=== PATIENT | female | born 2005 | race Caucasian/White ===

== ENCOUNTER 2023-11-14 20:49 | Emergency (ER) | payer OTHER, SELFPAY ==
[2023-11-14 20:55] VITALS: BP 132/70; BMI 24.6
[2023-11-14 21:19] LABS: % Basophils 0.3 % (0-2); % Eosinophils 2.4 % (0-6); % Immature Granulocytes 0.2 % (0-0.5); % Monocytes 6.8 % (1.7-9.3); % Neutrophils 44.3 % (42.2-75.2); Absolute Eosinophils 0.2 10^3/uL (0-0.7); Absolute Lymphocytes 2.9 10^3/uL (1.2-3.4); Absolute Monocytes 0.4 10^3/uL (0.1-0.6); Absolute Neutrophils 2.8 10^3/uL (1.4-6.5); Hematocrit 34.8 % (37.0-47.0); Hemoglobin 12.1 g/dL (12.0-16.0); Mean Corp Hgb Conc. 34.8 g/dL (33.0-37.0); Mean Corpuscular Hgb 30.1 pg (27.0-31.0); Mean Corpuscular Volume 86.6 fL (81.0-99.0); Mean Platelet Volume 9.6 fL (7.4-10.4); Nucleated Red Blood Cells % 0 %; Platelet Count 213 10^3/uL (130-400); Red Blood Cell Count 4.02 10^6/uL (4.20-5.40); Red Cell Dist. Width 12.1 % (11.5-14.5); White Blood Cell Count 6.2 10^3/uL (4.8-10.8)
[2023-11-14 21:50] LABS: Beta HCG Quantitative 80.17 mIU/ml
--- NOTE | 2023-11-14 22:21 | ED.GENMED ---
History of Present Illness
General
Chief Complaint: Vaginal Bleeding
Source: patient
Exam Limitations: none
Time Seen by Provider: 11/14/23 21:56
Travel History
Have you had any contact with someone who has COVID-19?: No
Do you have any symptoms of coronavirus? Fever > 100 degrees, chills, cough, shortness of breath, sore throat, loss of taste or smell, muscle aches, or headache?: No
History of Present Illness
History of Present Illness:
This is a 18 year old female that comes in with c/o heavy vaginal bleeding. States that she has done 3 home test and they came back positive. States that she started with heavy vaginal bleeding today. States that she also has abd cramping
and pain on the right side. States that she is nauseated. Denies any fever, chills, chest pain, SOB, vomiting, diarrhea, headache, dizziness, urinary burning.
Past History
Past History
ED Past Medical History: None
ED Past Surgical History: None
Social History
Tobacco: Non-smoker
Alcohol: None
Personal: Single
Living: with family
Review of Systems
Review of Systems
All Other Systems: ROS reviewed and negative except as documented in HPI and ROS
Constitutional: Reports no symptoms; Denies fever or chills
EENT: Reports no symptoms
Respiratory: Reports no symptoms; Denies cough or trouble breathing
Cardiac: Reports no symptoms; Denies chest pain
ABD/GI: Reports abdominal pain and nausea; Denies vomiting or diarrhea
: Reports no symptoms; Denies dysuria, frequency or urgency
Musculoskeletal: Reports no symptoms
Skin: Reports no symptoms
Neurological: Reports no symptoms; Denies dizzy or headache
Psychiatric: Reports no symptoms
Phy Exam
General Physical Exam
General Presentation: mild distress
General age: appears stated age
General Skin: warm and dry
General Habitus: normal
General Mental: alert
ENT Exam
ENT Exam: TM's normal, pharynx normal and neck supple
Eye Exam
Eye Exam: EOMI
Cardiovascular Exam
Cardiovascular Exam: regular rate/rhythm, no edema, no murmur and normal peripheral pulses
Pulmonary Exam
Pulmonary Exam: lungs clear, no respiratory distress, no rales, chest non tender, no crackles, no rhonchi, no wheezing and no cough
Gastrointestinal Exam
Gastrointestinal Exam: normal bowel sounds, soft, no organomegaly, no pulsatile mass, non distended and tender (Right lower abd tenderness with palpation)
Musculoskeletal Exam
Musculoskeletal Exam: full ROM and no edema
Skin Exam
Skin Exam: normal color, warm/dry, no rash and no petechia
Psychiatric Exam
Psychiatric Exam: normal mood/affect
Course
Orders/Labs/Results
Orders:
Orders
11/14/23 21:11
Type+Screen Urgent
Beta HCG Quantitative Urgent
Is this a screen?: No
Complete Blood Count/With Diff Urgent
11/14/23 22:19
IV Insert/Care/Rem.- Treatment PRN
0.9% Sodium Chloride 1000 ml [Nss] 1,000 ml IV BOLUS
Ketorolac [Toradol] 30 mg IV NOW STA
US W Transvaginal Urgent
Reason For Exam: Heavy vaginal bleeding, cramping, Right sided pain
11/14/23 23:22
Comprehensive Metabolic Panel Urgent
Abnormal Lab Results
11/14/23 11/14/23
21:11 23:22
RBC 4.02 L 10^6/uL
(4.20-5.40)
Hct 34.8 L %
(37.0-47.0)
Glucose 111 H mg/dl
(70-99)
11/14/23 21:11
11/14/23 23:22
Labs unremarkable. HCG 80.17, Glucose nonfasting.
Vital Signs
Initial and Last Documented VS:
Initial Vital Signs
Temp Pulse Resp BP Pulse Ox
98.5 F 86 16 132/70 100
11/14/23 20:55 11/14/23 20:55 11/14/23 20:55 11/14/23 20:55 11/14/23 20:55
Last Documented Vital Signs
Temp Pulse Resp BP Pulse Ox
98.5 F 86 16 120/59 100
11/14/23 20:55 11/14/23 20:55 11/14/23 20:55 11/14/23 23:14 11/14/23 23:30
MDM/Problems Addressed
Differential Diagnosis Includes:
Miscarriage, Tubal ,
MDM/Problems Addressed:
This is a 18 year old female that comes in with c/o abd cramping and heavy vaginal bleeding. States that she did three home test and they were positive. Then she started with today with the bleeding and pain.
Will check labs, Get US and give IV fluids
Back into see patient. Patient states that her pain is better. Explained that there is no intrauterine seen. This is most likely a miscarriage, but a tubal can't be ruled out. There was no abnormal tubal masses noted. Patient
will need to follow up with the [facility] for repeat HCG in the next 24 hours. Patient to return with increased pain.
Chronic conditions affecting care:
NA
Acute Exacerbation and/or Progression of Chronic Illness:
NA
*Radiology
Radiology exam reviewed: radiology read reviewed (US night hawk- No intrauterine . Ectopic cannot be excluded. Endometrium measures 8mm without hypervascularity. Small amount of complex pelvic free fluid. nonenlarged ovaries with
normal vascular flow. 1.5cm right ovarian corpus luteum. No suspicious adnexal mass lesions. )
*Pulse Oximetry
Patient hypoxic: no
*EKG
Interpreted by ED Provider?: NA
Rate: EKG- N/A
*After School Coordinator Interpretation
Rate: After School Coordinator- N/A
*Critical Care Note
Total Time (30-74mins, 75-104mins- exclusive of procedures): Not Applicable
ED Attending Note
-
Portions of this chart may have been created with voice recognition software.� Occasional wrong word or��sound alike� substitutions may have occurred due to the inherent limitations of voice recognition software.
Discharge Plan
Departure
Patient Disposition: Home (Routine Discharge)
Date of Disposition: 11/15/23
Time of Disposition: 00:12
Patient with high blood pressure during this ER visit?: No
Condition: Good
Covid-19: Not Applicable
Discharge Problem:
Miscarriage
Instructions: Miscarriage (DC)
Prescriptions:
No Action
No Current Medications
0
Referrals:
UNKNOWN - PT DOES,NOT KNOW [Family Provider] -
Activity Restrictions/Additional Instructions:
As discussed, your blood work is normal. Your HCG is very low and your ultrasound is negative for any intrauterine . This is most likely a Miscarriage. However, the concern for a tubal is there as you are very early. There are no
tubal masses seen. You will need to have your Blood HCG rechecked in the next 24 hours by our [facility] or [facility]. IF YOU HAVE INCREASED ABD PAIN, DIZZINESS, OR YOU HAVE ANY OTHER CONCERNS PLEASE RETURN TO THE EMERGENCY ROOM
Interventions
Interventions:
*Risk Screen - Suicide Last Done: 11/14/23 20:55
*General Assessment Last Done: 11/14/23 23:33
*Neglect/Abuse Screening Last Done: 11/14/23 20:55
ED- Fall Risk Assessment Last Done: 11/14/23 23:33
*ED COVID-19 Vaccine History Last Done: 11/14/23 20:55
ED-Female Genitourinary Assessment Last Done: 11/14/23 23:33
[2023-11-14 23:14] VITALS: BP 120/59
[2023-11-14] MEDS: TORADOL 30 MG IV (23:20)
[2023-11-14] MEDS: NSS 1000 IV (23:20)
[2023-11-14 23:51] LABS: ALT (SGPT) 12 U/L (0-35); AST (SGOT) 24 U/L (14-36); Albumin 4.9 g/dl (3.5-5.0); Alkaline Phosphatase 55 U/L (38-126); Blood Urea Nitrogen 9 mg/dl (7-17); Calcium 9.4 mg/dl (8.4-10.2); Carbon Dioxide 26 mmol/L (22-30); Chloride 103 mmol/L (98-107); Estimated Creatinine Clearance 113 ml/min; Glucose 111 mg/dl (70-99); Sodium 135 mmol/L (135-145); Total Bilirubin 0.8 mg/dl (0.2-1.3); Total Protein 7.7 g/dl (6.3-8.2); eGFR > 60.00
[2023-11-15] VITALS: BP 103/62
== END 2023-11-15 00:51 | disposition home or self-care (01) ==
LOC: EMR 20:49
PROVIDERS: Clinical Nurse Specialist Family Health; Emergency Medicine; EMERGENCY PHYSICIAN Emergency Medicine
DX: O03.9 Complete or unspecified spontaneous abortion without complication (principal); R11.0 Nausea
CPT/HCPCS: 99284; 96374; 96361; 76801; 76817; 80053; 84702; 85025; 86850; 86900; 86901

== ENCOUNTER 2024-10-06 16:39 | Emergency (ER) | payer SELFPAY ==
[2024-10-06 16:48] VITALS: BP 153/97
--- NOTE | 2024-10-06 16:49 | ED.GENMED ---
ED Provider Triage
<Geoff Chang Jr., PA-C - Last Filed: 10/06/24 16:50>
-
Patient seen by provider in Triage?: Seen in Triage
Attestation: A medical screening examination has been initiated by a qualified medical provider. Based on the assessment performed at this time, it has been determined that an emergent medical condition may exist and the patient has been informed
that further medical evaluation and possible additional diagnostic testing may be needed.
HPI: 19-year-old female presenting to the emergency department today with concerns of ongoing nausea vomiting over the past month or so. 2 days ago had an episode where she had a small cut on her finger for like she can a pass out but did not
fully pass out. Ongoing symptoms since then over the past 2 days as well. Plan for initial labs and EKG.
GENERAL: Alert , in no apparent distress
EYE: No visual abnormalities.
NECK: Trachea midline
ENT: No visible abnormalities.
LUNGS: No acute respiratory distress
NEUROLOGICAL: Alert and oriented
SKIN: Skin intact. No visible changes.
MUSCULOSKELETAL: Moving extremities normally
PSYCH: Normal and appropriate interaction.
This is a medical evaluation conducted in person to initiate diagnostic evaluation and provide initial therapeutics. Please see further documentation by the treating clinician.
History of Present Illness
<Geoff Chang Jr., PA-C - Last Filed: 10/06/24 16:50>
General
Chief Complaint: Abdominal Symptoms
Time Seen by Provider: 10/06/24 17:51
<Srikanth Nation DO - Last Filed: 10/06/24 18:18>
General
Source: patient
Exam Limitations: none
Nursing documentation reviewed up to this point in time: agreed with
History of Present Illness
History of Present Illness:
19-year-old female with anxiety and nausea. Denies SI, HI or abdominal pain. She was anxious about smoking marijuana from someone that has herpes.
Past History
<Geoff Chang Jr., PA-C - Last Filed: 10/06/24 16:50>
Past History
ED Past Medical History: None
ED Past Surgical History: None
Social History
Tobacco: Non-smoker
Alcohol: None
Personal: Single
Living: with family
<Srikanth Nation, DO - Last Filed: 10/06/24 18:18>
Social History
Drug: Marijuana
Review of Systems
<Srikanth Nation, DO - Last Filed: 10/06/24 18:18>
Review of Systems
Allergies reviewed?: Yes
All Other Systems: Not applicable
Constitutional: Reports no symptoms
EENT: Reports no symptoms
Respiratory: Reports no symptoms
Cardiac: Reports no symptoms
ABD/GI: Reports no symptoms
: Reports no symptoms
Musculoskeletal: Reports no symptoms
Skin: Reports no symptoms
Neurological: Reports no symptoms
Endocrine: Reports no symptoms
Hematologic/Lymphatic: Reports no symptoms
Psychiatric: Reports anxiety; Denies depression, suicidal or hallucinations
Phy Exam
<Srikanth Nation, DO - Last Filed: 10/06/24 18:18>
Physical Exam
Physical Exam:
Physical Exam
General: no apparent distress, not acutely ill
Neck: supple. no meningeal signs. normal posterior pharynx
Heart: s1/s2 regular rate and rhythm, no murmur. equal radial
pulses.
HEENT: Pupils equal round reactive to light, EOMI
Lungs: no acute respiratory distress. clear bilaterally
Abdomen: normal bowel sounds. not tender. no CVAT
Neuro: alert and oriented. no focal neurological deficits cranial nerves II through XII intact
Skin: no rash
Psychiatric: well kept. interactive and cooperative
Extremities: no edema. no calf tenderness. negative homans. good distal pulses
Course
<Geoff Chnag Jr., PA-C - Last Filed: 10/06/24 16:50>
Orders/Labs/Results
Orders:
Orders
10/06/24 16:48
Test Result ONCE
10/06/24 16:50
EKG [Electrocardiogram (*1)] Urgent
Reason for Study: Abdominal Pain
EKG- Treatment ONCE
10/06/24 17:10
Complete Blood Count/With Diff Urgent
Comprehensive Metabolic Panel Urgent
HCG, Serum Qualitative Screen Urgent
Lipase Urgent
Urinalysis Reflex To Culture Urgent
Date Specimen was Collected: 10/06/24
Time Specimen was Collected: 16:54
Abnormal Lab Results
10/06/24
17:10
BUN 6 L mg/dl
(7-17)
Creatinine 0.5 L mg/dL
(0.6-1.0)
Glucose 155 H mg/dl
(70-99)
Albumin 5.1 H g/dl
(3.5-5.0)
Urine Glucose Trace A
(Negative)
10/06/24 17:10
10/06/24 17:10
Vital Signs
Initial and Last Documented VS:
Initial Vital Signs
Temp Pulse Resp BP Pulse Ox
98.5 F 110 18 153/97 100
10/06/24 16:48 10/06/24 16:48 10/06/24 16:48 10/06/24 16:48 10/06/24 16:48
Last Documented Vital Signs
Temp Pulse Resp BP Pulse Ox
98.5 F 110 18 153/97 100
10/06/24 16:48 10/06/24 16:48 10/06/24 16:48 10/06/24 16:48 10/06/24 16:48
<Srikanth Nation DO - Last Filed: 10/06/24 18:18>
Orders/Labs/Results
Orders:
Orders
10/06/24 16:48
Test Result ONCE
10/06/24 16:50
EKG [Electrocardiogram (*1)] Urgent
Reason for Study: Abdominal Pain
EKG- Treatment ONCE
10/06/24 17:10
Complete Blood Count/With Diff Urgent
Comprehensive Metabolic Panel Urgent
HCG, Serum Qualitative Screen Urgent
Lipase Urgent
Urinalysis Reflex To Culture Urgent
Date Specimen was Collected: 10/06/24
Time Specimen was Collected: 16:54
Abnormal Lab Results
10/06/24
17:10
BUN 6 L mg/dl
(7-17)
Creatinine 0.5 L mg/dL
(0.6-1.0)
Glucose 155 H mg/dl
(70-99)
Albumin 5.1 H g/dl
(3.5-5.0)
Urine Glucose Trace A
(Negative)
10/06/24 17:10
10/06/24 17:10
Vital Signs
Initial and Last Documented VS:
Initial Vital Signs
Temp Pulse Resp BP Pulse Ox
98.5 F 110 18 153/97 100
10/06/24 16:48 10/06/24 16:48 10/06/24 16:48 10/06/24 16:48 10/06/24 16:48
Last Documented Vital Signs
Temp Pulse Resp BP Pulse Ox
98.5 F 110 18 153/97 100
10/06/24 16:48 10/06/24 16:48 10/06/24 16:48 10/06/24 16:48 10/06/24 16:48
<Srikanth Nation, DO - Last Filed: 10/06/24 18:18>
MDM/Problems Addressed
Differential Diagnosis Includes:
Appendicitis, viral gastroenteritis
MDM/Problems Addressed:
19-year-old female with nausea and vomiting. Possibly related marijuana use anxiety. Patient denies abdominal pain or nausea at this time. Patient stable for discharge.
<Srikanth Nation DO - Last Filed: 10/06/24 18:18>
*Pulse Oximetry
Patient hypoxic: no
*EKG
Interpreted by ED Provider?: Yes
EKG Intrepretation Date: 10/06/24
EKG Intrepretation Time: 17:01
Interpretation: abnormal
Comparison EKG: no comparison EKG present
Heart Rate: 111
Rate: tachycardiac
Rhythm: sinus tachycardia
Walker: normal axis
Interval: normal interval
QRS Pattern: normal QRS
Ischemia: no ischemia
*Critical Care Note
Total Time (30-74mins, 75-104mins- exclusive of procedures): Not Applicable
Data Reviewed
Further Testing Considered But Not Given:
CT abdomen pelvis considered, but not indicated
<DO Akbar Jordan Last Filed: 10/06/24 18:18>
Patient Management
Escalation/DeEscalation of care consider admission/obs:
admit not indicated
ED Attending Note
<Geoff Chang Jr., PA-C - Last Filed: 10/06/24 16:50>
-
Portions of this chart may have been created with voice recognition software.� Occasional wrong word or��sound alike� substitutions may have occurred due to the inherent limitations of voice recognition software.
Discharge Plan
Departure
Patient Disposition: Home (Routine Discharge)
Date of Disposition: 10/06/24
Time of Disposition: 18:14
Patient with high blood pressure during this ER visit?: Yes
Condition: Good
Discharge Problem:
Nausea and vomiting, Anxiety
Instructions: Nausea and Vomiting, Adult (DC), BLOOD PRESSURE
Prescriptions:
New
ondansetron 4 mg tablet,disintegrating
4 mg PO Q8H PRN (Reason: nausea and vomiting) 4 Days Qty: 7 0RF
Interventions
Interventions:
*Risk Screen - Suicide Last Done: 10/06/24 16:48
*Neglect/Abuse Screening Last Done: 10/06/24 16:48
*ED COVID-19 Vaccine History Last Done: 10/06/24 16:48
Discharge Date and Time
Print Language: TURKISH
[2024-10-06 17:20] LABS: % Basophils 0.2 % (0-2); % Eosinophils 0.2 % (0-6); % Immature Granulocytes 0.2 % (0-0.5); % Lymphocytes 26.9 % (20.5-51.1); % Monocytes 4.2 % (1.7-9.3); % Neutrophils 68.3 % (42.2-75.2); Absolute Lymphocytes 1.7 10^3/uL (1.2-3.4); Absolute Monocytes 0.3 10^3/uL (0.1-0.6); Absolute Neutrophils 4.4 10^3/uL (1.4-6.5); Hematocrit 38.7 % (37.0-47.0); Hemoglobin 13.2 g/dL (12.0-16.0); Mean Corp Hgb Conc. 34.1 g/dL (33.0-37.0); Mean Corpuscular Hgb 29.6 pg (27.0-31.0); Mean Corpuscular Volume 86.8 fL (81.0-99.0); Nucleated Red Blood Cells % 0 %; Platelet Count 271 10^3/uL (130-400); Red Blood Cell Count 4.46 10^6/uL (4.20-5.40); Red Cell Dist. Width 12.1 % (11.5-14.5); White Blood Cell Count 6.5 10^3/uL (4.8-10.8)
[2024-10-06 17:29] LABS: HCG, Serum Qualitative Screen Negative
[2024-10-06 17:33] LABS: ALT (SGPT) 20 U/L (0-35); AST (SGOT) 25 U/L (14-36); Albumin 5.1 g/dl (3.5-5.0); Alkaline Phosphatase 42 U/L (38-126); Blood Urea Nitrogen 6 mg/dl (7-17); Carbon Dioxide 28 mmol/L (22-30); Chloride 99 mmol/L (98-107); Glucose 155 mg/dl (70-99); Potassium 3.6 mmol/L (3.5-5.1); Sodium 137 mmol/L (135-145); Total Bilirubin 0.3 mg/dl (0.2-1.3); Total Protein 8.2 g/dl (6.3-8.2); eGFR > 60.00
[2024-10-06 17:34] LABS: Lipase 140 U/L (23-300)
[2024-10-06 17:38] LABS: Urine Albumin Trace (Neg - Trace); Urine Bilirubin Negative (Negative); Urine Character Clear (Clear); Urine Color Yellow; Urine Glucose Trace (Negative); Urine Ketone Negative (Negative); Urine Leukocyte Negative (Negative); Urine Nitrite Negative (Negative); Urine Occult Blood Negative (Negative); Urine Urobilinogen Negative (Neg - 1+)
[2024-10-06 18:27] VITALS: BP 100/66
== END 2024-10-06 18:28 | disposition home or self-care (01) ==
LOC: EMR 16:39
PROVIDERS: Physician Assistant; EMERGENCY PHYSICIAN Emergency Medicine
DX: R11.2 Nausea with vomiting, unspecified (principal); F41.9 Anxiety disorder, unspecified
CPT/HCPCS: 99283; 80053; 81003; 83690; 84703; 85025; 93005